=== PATIENT | female | born 1995 | race Caucasian/White ===

== ENCOUNTER 2017-07-12 10:40 | Emergency (ER) | payer OTHER ==
[2017-07-12 10:49] VITALS: BP 119/70
[2017-07-12] MEDS ORDERED: DEXAMETHASONE 10 MG/ML VIAL PO STA (11:17)
[2017-07-12] MEDS ORDERED: cefTRIAXone 1 GM VIAL IM STA (11:17)
--- NOTE | 2017-07-12 11:19 | ED Physician Documentation ---
PD HPI HEENT - Stated complaint Stated Complaint: THROAT PX/EAR ACHE - Chief complaint Chief Complaint: Heent - History obtained from History obtained from: Patient - History of Present Illness Timing - onset: How many days ago (4) Timing - duration: Days (4) Timing - details: Gradual onset, Still present Location: Right ear, Throat Improves: Medication Worsens: Swalllowing Associated symptoms: Fever, Congestion, Rhinorrhea, Swollen nodes, Cough Similar symptoms before: Diagnosis (strep) Recently seen: Not recently seen - Additional information Additional information: 22-year-old female is been sick with a sore throat for the past 3 days. She has had strep previously this summer which took some time to get over. She has a change in voice with this she is having some trouble swallowing but she has been able to stay hydrated. Review of Systems Constitutional: reports: Fever, Chills, Fatigue Eyes: denies: Decreased vision Ears: reports: Ear pain Nose: reports: Rhinorrhea / runny nose, Congestion Throat: reports: Sore throat Cardiac: denies: Chest pain / pressure, Palpitations Respiratory: reports: Cough. denies: Dyspnea GI: denies: Vomiting PD PAST MEDICAL HISTORY - Past Medical History Past Medical History: Yes Other Past Medical History: hashimotos ( autoimmune disease) - Past Surgical History Past Surgical History: No - Present Medications Home Medications: Ambulatory Orders Medication Instructions Recorded Confirmed Amox/Clav 875/125 [Augmentin] 1 each PO Q12H #20 tablet 07/12/17 - Allergies Allergies/Adverse Reactions: Allergies Allergy/AdvReac Type Severity Reaction Status Date / Time No Known Drug Allergies Allergy Verified 07/12/17 10:45 - Social History Does the pt smoke?: No Smoking Status: Never smoker Does the pt drink ETOH?: Yes ETOH Use: Beer Does the pt have substance abuse?: No - Immunizations Immunizations are current?: Yes - POLST Patient has POLST: No PD ED PE NORMAL - Vitals Vital signs reviewed: Yes (Normal) - General General: Alert and oriented X 3, No acute distress, Well developed/nourished, Other (The patient has a voice consistent with posterior pharyngeal swelling) - HEENT HEENT: Atraumatic, PERRL, EOMI, Ears normal, Moist mucous membranes, Other ( There is marked swelling to both tonsils which are cryptic and with exudate the right is more swollen than the left and there is anterior fullness.) - Neck Neck: Supple, no meningeal sign, No bony TTP, Other (Tender submandibular adenopathy bilaterally) - Cardiac Cardiac: RRR, No murmur - Respiratory Respiratory: No respiratory distress, Clear bilaterally - Abdomen Abdomen: Soft, Non tender - Derm Derm: Normal color, Warm and dry, No rash - Extremities Extremities: No deformity, No edema - Neuro Neuro: No motor deficit, No sensory deficit Eye Opening: Spontaneous Motor: Obeys Commands Verbal: Oriented GCS Score: 15 - Psych Psych: Normal mood, Normal affect Results - Vitals Vitals: Vital Signs - 24 hr 07/12/17 10:44 Temperature 36.6 C Heart Rate 67 Respiratory 16 Rate Blood Pressure 119/70 O2 Saturation 100 PD MEDICAL DECISION MAKING - ED course Complexity details: considered differential, d/w patient ED course: 22-year-old female with acute tonsillopharyngitis appears to have a sherry- tonsillar abscess she is treated conservatively here today with dexamethasone 10 mg orally and a gram of Rocephin IM. We will place her on some Augmentin and have her follow-up with ENT for any treatment failure. Departure - Departure Disposition: 01 Home, Self Care Clinical Impression: Peritonsillar abscess Condition: Stable Instructions: ED Peritonsillar Infec Abx No I andD Follow-Up: [facility] [Provider Group] Prescriptions: Amox/Clav 875/125 [Augmentin] 1 each PO Q12H #20 tablet
[2017-07-12] MEDS ORDERED: LIDOCAINE 1% 2 ML VIAL ONE (11:29)
[2017-07-12 11:41] LABS: RAPID STREP SCREEN REAGENT QC YELLOW (YELLOW)
== END 2017-07-12 11:32 | disposition home or self-care (01) ==
LOC: ED 10:40
DX: J36 Peritonsillar abscess (principal)
CPT/HCPCS: 87070; 87430; 96372; 99283

== ENCOUNTER 2021-06-24 08:00 | Outpatient (CLI) | payer MEDICAID, OTHER | END 2021-06-24 23:59 | disposition home or self-care (01) | LOC: LAB.S 08:00 | PROVIDERS: ATTEND Physician Assistant Medical | DX: R05.9 Cough, unspecified (principal); B34.9 Viral infection, unspecified; Z20.822 Contact with and (suspected) exposure to COVID-19 | CPT/HCPCS: 87275; 87276 ==

== ENCOUNTER 2021-08-23 09:29 | Outpatient (CLI) | payer OTHER ==
[2021-08-27 18:01] LABS: HEPATITIS A AB TOTAL(IMMUNITY) REACTIVE (NON-REACTIVE)
== END 2021-08-23 09:30 | disposition home or self-care (01) ==
LOC: LAB.S 09:29
PROVIDERS: ATTEND Physician Assistant
DX: Z02.1 Encounter for pre-employment examination (principal)
CPT/HCPCS: 36415; 86317; 86708; 86762; 86787